=== PATIENT | female | born 1940 | race Hispanic/Latino ===

== ENCOUNTER 2020-11-12 13:25 | Emergency (ER) | payer MEDICARE ==
[~2020-11-12] VITALS: Ht 152.4 cm; Wt 49.9 kg
[2020-11-12 17:16] VITALS: BP 124/74
== END 2020-11-12 17:19 | disposition home or self-care (01) ==
LOC: EDH 13:25
DX: S52.502A Unspecified fracture of the lower end of left radius, initial encounter for closed fracture (principal); S52.602A Unspecified fracture of lower end of left ulna, initial encounter for closed fracture; I10 Essential (primary) hypertension; F41.9 Anxiety disorder, unspecified; W18.39XA Other fall on same level, initial encounter; Y93.89 Activity, other specified; Y92.89 Other specified places as the place of occurrence of the external cause; Y99.8 Other external cause status
CPT/HCPCS: 29125; 73110

== ENCOUNTER 2022-10-16 09:50 | Emergency (ER) | payer MEDICARE, OTHER ==
[~2022-10-16] VITALS: Ht 152.4 cm; Wt 54.4 kg
[2022-10-16 10:24] LABS: BASOPHILS % (AUTO) 0.5 % (0.0-5.0); HEMATOCRIT 50.4 % (36-48); LYMPHOCYTES % (AUTO) 21.3 % (21.0-51.0); MEAN CORPUSCULAR HGB CONC 33.1 g/dL (32.0-36.0); MEAN CORPUSCULAR VOLUME 90.6 fL (79-99); NEUTROPHILS % (AUTO) 70.8 % (40.0-77.0); PLATELET COUNT (AUTO) 157 K/uL (130-400); RED BLOOD CELL COUNT(AUTO) 5.56 MIL/uL (4.00-5.50); RED CELL DISTRIBUTION WIDTH 13.5 % (11.0-15.5); WHITE BLOOD COUNT (AUTO) 7.9 K/uL (4.8-10.8)
[2022-10-16 10:36] LABS: CREATININE 0.7 mg/dL (0.5-1.5); POTASSIUM 3.9 mmol/L (3.5-5.1)
[2022-10-16 10:50] LABS: ALBUMIN 3.5 g/dL (3.5-5.0); THYROID STIMULATING HORMONE 2.1 uIU/mL (0.36-3.74); TOTAL PROTEIN, SERUM 6.4 g/dL (6.0-8.3)
[2022-10-16 14:18] VITALS: BP 126/60; PULSE 80; RESP 18; O2SAT 97
[2022-10-16 14:27] LABS: APPEARANCE,URINE CLEAR (CLEAR); BILIRUBIN,URINE NEGATIVE (NEGATIVE); COLOR,URINE LIGHT-YELLOW (YELLOW); GLUCOSE, URINE (UA) NEGATIVE (NEGATIVE); KETONES,URINE NEGATIVE (NEGATIVE); LEUKOCYTE ESTERASE ,URINE NEGATIVE Leu/uL (NEGATIVE); NITRATE,URINE NEGATIVE (NEGATIVE); OCCULT BLOOD,URINE NEGATIVE (NEGATIVE); PH,URINE 7.5 (5.0-8.0); PROTEIN,URINE NEGATIVE (NEGATIVE)
[2022-10-16 14:39] LABS: BACTERIA,URINE RARE /HPF (None Seen); RBC,URINE 0-1 /HPF (0-1); WBC,URINE 0-1 /HPF (0-1)
== END 2022-10-16 16:44 | disposition home or self-care (01) ==
LOC: EDH 09:50
DX: R53.1 Weakness (principal); F10.90 Alcohol use, unspecified, uncomplicated; F17.200 Nicotine dependence, unspecified, uncomplicated; E78.00 Pure hypercholesterolemia, unspecified; Z86.73 Personal history of transient ischemic attack (TIA), and cerebral infarction without residual deficits; Y90.0 Blood alcohol level of less than 20 mg/100 ml
CPT/HCPCS: 36415; 71045; 80053; 81001; 84443; 84484; 85025; 93005

== ENCOUNTER 2022-10-23 13:12 | Inpatient (IN) | payer OTHER ==
[~2022-10-23] VITALS: Ht 152.4 cm; Wt 46.3 kg
[2022-10-23 15:18] LABS: MEAN CORPUSCULAR HGB CONC 33.9 g/dL (32.0-36.0); MEAN CORPUSCULAR VOLUME 88.5 fL (79-99); RED BLOOD CELL COUNT(AUTO) 5.2 MIL/uL (4.00-5.50); RED CELL DISTRIBUTION WIDTH 13.1 % (11.0-15.5)
[2022-10-23 15:49] LABS: ALBUMIN 3.4 g/dL (3.5-5.0); BILIRUBIN,TOTAL 0.9 mg/dL (0.2-1.0); CREATININE 0.8 mg/dL (0.5-1.5); POTASSIUM 3.4 mmol/L (3.5-5.1); TOTAL PROTEIN, SERUM 6.1 g/dL (6.0-8.3)
[2022-10-23] MEDS: ONDANSETRON 4MG INJ IVP ONE ×2 (18:13→18:16)
[2022-10-23] MEDS: MORPHINE 2 MG SYG IVP ONE ×2 (18:13→18:16)
[2022-10-23 18:48] LABS: APPEARANCE,URINE CLEAR (CLEAR); BILIRUBIN,URINE NEGATIVE (NEGATIVE); COLOR,URINE LIGHT-YELLOW (YELLOW); GLUCOSE, URINE (UA) NEGATIVE (NEGATIVE); KETONES,URINE NEGATIVE (NEGATIVE); LEUKOCYTE ESTERASE ,URINE NEGATIVE Leu/uL (NEGATIVE); NITRATE,URINE NEGATIVE (NEGATIVE); OCCULT BLOOD,URINE NEGATIVE (NEGATIVE); PH,URINE 6.5 (5.0-8.0); PROTEIN,URINE NEGATIVE (NEGATIVE); UROBILINOGEN,URINE 0.2 mg/dL (0.2-1.0)
[2022-10-23 18:50] LABS: ADD UA MICROSCOPIC YES
[2022-10-23 18:55] LABS: BACTERIA,URINE RARE /HPF (None Seen); RBC,URINE 0-1 /HPF (0-1); SQUAMOUS EPITHELIAL CELL,UR RARE /HPF (0-2); UNCLASSIFIED CRYSTAL 1 /HPF (None Seen); YEAST,URINE BUDDING RARE /HPF (None Seen)
[2022-10-23] MEDS ORDERED: ONDANSETRON 4MG INJ IV PRN (20:00)
[2022-10-23] MEDS ORDERED: LACTULOSE 20 GM/30 ML UDCUP PO PRN (20:00)
[2022-10-23] MEDS ORDERED: ACETAMINOPHEN 325 MG TAB PO PRN ×2 (20:00)
[2022-10-23] MEDS ORDERED: KCL 20 MEQ ERTAB PO ONE (21:00)
[2022-10-23] MEDS: FAMOTIDINE 20MG TAB PO SCH (21:43)
[2022-10-24 11:51] LABS: HEMATOCRIT 44.6 % (36-48); MEAN CORPUSCULAR HEMOGLOBIN 30.2 pg (27.0-33.0); MEAN CORPUSCULAR HGB CONC 33.4 g/dL (32.0-36.0); MEAN CORPUSCULAR VOLUME 90.3 fL (79-99); RED BLOOD CELL COUNT(AUTO) 4.94 MIL/uL (4.00-5.50); RED CELL DISTRIBUTION WIDTH 12.9 % (11.0-15.5); WHITE BLOOD COUNT (AUTO) 7.1 K/uL (4.8-10.8)
[2022-10-24 12:00] LABS: CREATININE 0.8 mg/dL (0.5-1.5); POTASSIUM 3.8 mmol/L (3.5-5.1)
[2022-10-24 19:15] VITALS: O2SAT 97
[2022-10-24] MEDS: LIDOCAINE 5% TOPICAL PATCH TP SCH (19:18)
[2022-10-24] MEDS: FAMOTIDINE 20MG TAB PO SCH (19:18)
[2022-10-24] MEDS: TRAMADOL HCL 50 MG TABLET PO PRN (19:19)
[2022-10-24 20:00] VITALS: BP 155/73; PULSE 72; RESP 18
[2022-10-25] VITALS (8 sets, daily range): BP systolic 105–174; BP diastolic 50–92; PULSE 60–79; RESP 18; O2SAT 94–96
[2022-10-25 05:23] LABS: HEMATOCRIT 44.4 % (36-48); MEAN CORPUSCULAR HEMOGLOBIN 29.7 pg (27.0-33.0); MEAN CORPUSCULAR HGB CONC 32.9 g/dL (32.0-36.0); MEAN CORPUSCULAR VOLUME 90.4 fL (79-99); RED BLOOD CELL COUNT(AUTO) 4.91 MIL/uL (4.00-5.50)
[2022-10-25] MEDS: TRAMADOL HCL 50 MG TABLET PO PRN (05:24)
[2022-10-25 06:07] LABS: CREATININE 0.8 mg/dL (0.5-1.5); CRP QUANTITATIVE 39.4 mg/L (0.00-9.0); POTASSIUM 3.5 mmol/L (3.5-5.1)
[2022-10-25] MEDS: LACTOSE-REDUCED VAN/STB/CHOC 237 ML BOTTLE PO SCH (17:00)
[2022-10-25] MEDS: FAMOTIDINE 20MG TAB PO SCH (22:00)
[2022-10-25] MEDS: LIDOCAINE 5% TOPICAL PATCH TP SCH (22:00)
[2022-10-26] VITALS (10 sets, daily range): BP systolic 114–180; BP diastolic 43–86; PULSE 59–84; RESP 18–20; O2SAT 96–97
[2022-10-26] MEDS ORDERED: AMLO2.5T4 PO (00:16)
[2022-10-26] MEDS ORDERED: TIZA-211 PO (00:16)
[2022-10-26] MEDS ORDERED: FAMO40TA7 PO (00:16)
[2022-10-26] MEDS ORDERED: ROSU20TA73 PO (00:16)
[2022-10-26] MEDS ORDERED: SERT-440 PO (00:16)
[2022-10-26] MEDS ORDERED: HYDRALAZINE 20MG/ML VIAL IV PRN (01:00)
[2022-10-26] MEDS: TRAMADOL HCL 50 MG TABLET PO PRN (02:18)
[2022-10-26] MEDS ORDERED: POTASSIUM CHLORIDE 20MEQ/100ML 100 ML IV PRN (02:30)
[2022-10-26] MEDS ORDERED: MAGNESIUM 2GM PREMIX 50ML 50 ML IV PRN (02:30)
[2022-10-26] MEDS ORDERED: POTASSIUM CHLORIDE 10% ELIXIR 20 MEQ/15 ML UDCUP PO PRN (02:30)
[2022-10-26 05:23] LABS: BASOPHILS # (AUTO) 0.04 K/uL (0.00-0.20); BASOPHILS % (AUTO) 0.5 % (0.0-5.0); EOSINOPHILS # (AUTO) 0.12 K/uL (0.00-0.70); EOSINOPHILS % (AUTO) 1.6 % (0.0-8.0); HEMATOCRIT 43.2 % (36-48); IMMATURE GRANULOCYTE ABSOLUTE 0.04 K/uL (0-1); LYMPHOCYTES # (AUTO) 1.4 K/uL (1.0-4.8); LYMPHOCYTES % (AUTO) 17.5 % (21.0-51.0); MEAN CORPUSCULAR VOLUME 88.2 fL (79-99); MONOCYTES # (AUTO) 0.7 K/uL (0.1-1.0); MONOCYTES % (AUTO) 9.1 % (3.0-13.0); NEUTROPHILS # (AUTO) 5.5 K/uL (1.8-7.7); NEUTROPHILS % (AUTO) 70.8 % (40.0-77.0); PLATELET COUNT (AUTO) 165 K/uL (130-400); RED CELL DISTRIBUTION WIDTH 12.8 % (11.0-15.5); WHITE BLOOD COUNT (AUTO) 7.7 K/uL (4.8-10.8)
[2022-10-26 05:46] LABS: BILIRUBIN,TOTAL 1.1 mg/dL (0.2-1.0); CREATININE 0.8 mg/dL (0.5-1.5); MAGNESIUM 1.5 mg/dL (1.80-2.40); POTASSIUM 3.5 mmol/L (3.5-5.1); TOTAL PROTEIN, SERUM 5.9 g/dL (6.0-8.3)
[2022-10-26] MEDS: KCL 20 MEQ ERTAB PO PRN ×2 (06:18→18:15)
[2022-10-26] MEDS: LACTOSE-REDUCED VAN/STB/CHOC 237 ML BOTTLE PO SCH ×3 (08:00→17:00)
[2022-10-26] MEDS: AMLODIPINE 2.5 MG TAB PO SCH (08:52)
[2022-10-26] MEDS: TIZANIDINE HCL 2 MG TABLET PO SCH ×2 (08:52→20:40)
[2022-10-26] MEDS: SERTRALINE HCL 50 MG TABLET PO SCH (08:52)
[2022-10-26] MEDS: LIDOCAINE 5% TOPICAL PATCH TP SCH (18:15)
[2022-10-26] MEDS: FAMOTIDINE 20MG TAB PO SCH (20:40)
[2022-10-27 00:10] VITALS: BP 139/68
[2022-10-27 04:21] VITALS: BP 170/71; PULSE 80; RESP 23
[2022-10-27 05:17] VITALS: BP 152/72; PULSE 70
[2022-10-27 05:25] LABS: HEMATOCRIT 43.5 % (36-48); MEAN CORPUSCULAR HEMOGLOBIN 30.1 pg (27.0-33.0); MEAN CORPUSCULAR VOLUME 88.6 fL (79-99); RED BLOOD CELL COUNT(AUTO) 4.91 MIL/uL (4.00-5.50); RED CELL DISTRIBUTION WIDTH 12.6 % (11.0-15.5); WHITE BLOOD COUNT (AUTO) 8.5 K/uL (4.8-10.8)
[2022-10-27 05:50] LABS: CREATININE 0.7 mg/dL (0.5-1.5); POTASSIUM 3.7 mmol/L (3.5-5.1)
[2022-10-27] MEDS ORDERED: MAGNESIUM 2GM PREMIX 50ML 50 ML IV PRN (06:30)
[2022-10-27] MEDS: KCL 20 MEQ ERTAB PO PRN (06:31)
[2022-10-27] MEDS ORDERED: MAGNESIUM 2GM PREMIX 50ML 50 ML IV ONE (06:34)
[2022-10-27 08:00] VITALS: BP 146/70; PULSE 75; RESP 18; O2SAT 97
[2022-10-27] MEDS: LACTOSE-REDUCED VAN/STB/CHOC 237 ML BOTTLE PO SCH ×3 (08:00→16:59)
[2022-10-27] MEDS: TIZANIDINE HCL 2 MG TABLET PO SCH ×2 (09:13→21:00)
[2022-10-27] MEDS: SERTRALINE HCL 50 MG TABLET PO SCH (09:13)
[2022-10-27] MEDS: AMLODIPINE 2.5 MG TAB PO SCH (09:13)
[2022-10-27] MEDS: TRAMADOL HCL 50 MG TABLET PO PRN (13:54)
[2022-10-27] MEDS ORDERED: CHLORDIAZEPOXIDE HCL 25 MG CAP PO PRN ×2 (14:30)
[2022-10-27] MEDS ORDERED: PHARMACY COMMUNICATION MISC PRN (14:30)
[2022-10-27] MEDS ORDERED: LORAZEPAM 2 MG/ML 1 ML VIAL IVP PRN ×2 (14:30)
[2022-10-27 16:00] VITALS: BP 117/56; PULSE 72; RESP 18
[2022-10-27] MEDS: FAMOTIDINE 20MG TAB PO SCH (21:00)
[2022-10-28 08:00] VITALS: BP 125/60; PULSE 63; RESP 16; O2SAT 89
[2022-10-28] MEDS: LACTOSE-REDUCED VAN/STB/CHOC 237 ML BOTTLE PO SCH ×3 (08:00→17:41)
[2022-10-28] MEDS: AMLODIPINE 2.5 MG TAB PO SCH (09:20)
[2022-10-28] MEDS: SERTRALINE HCL 50 MG TABLET PO SCH (09:20)
[2022-10-28] MEDS: NICOTINE 14 MG/ 24 HR PATCH TD SCH (10:30)
[2022-10-28] MEDS: TIZANIDINE HCL 2 MG TABLET PO SCH ×2 (10:30→20:18)
[2022-10-28] MEDS: TRAMADOL HCL 50 MG TABLET PO PRN ×2 (11:51→18:20)
[2022-10-28 12:00] VITALS: BP 131/55; PULSE 68; RESP 16
[2022-10-28 15:56] VITALS: BP 95/48; PULSE 71; RESP 18
[2022-10-28] MEDS: LIDOCAINE 5% TOPICAL PATCH TP SCH ×2 (18:21→19:00)
[2022-10-28 20:00] VITALS: BP 132/69; PULSE 74; RESP 20
[2022-10-28 20:15] VITALS: O2SAT 97
[2022-10-28] MEDS: FAMOTIDINE 20MG TAB PO SCH (20:18)
[2022-10-29] VITALS: BP 117/64; PULSE 65; RESP 18
[2022-10-29 04:00] VITALS: BP 113/63; PULSE 68; RESP 18
[2022-10-29 05:53] LABS: BASOPHILS # (AUTO) 0.06 K/uL (0.00-0.20); BASOPHILS % (AUTO) 0.8 % (0.0-5.0); EOSINOPHILS # (AUTO) 0.18 K/uL (0.00-0.70); EOSINOPHILS % (AUTO) 2.3 % (0.0-8.0); HEMATOCRIT 41.6 % (36-48); IMMATURE GRANULOCYTE ABSOLUTE 0.09 K/uL (0-1); LYMPHOCYTES # (AUTO) 2.1 K/uL (1.0-4.8); LYMPHOCYTES % (AUTO) 26.3 % (21.0-51.0); MEAN CORPUSCULAR HEMOGLOBIN 30.1 pg (27.0-33.0); MEAN CORPUSCULAR HGB CONC 33.4 g/dL (32.0-36.0); MONOCYTES # (AUTO) 0.7 K/uL (0.1-1.0); MONOCYTES % (AUTO) 8.5 % (3.0-13.0); NEUTROPHILS # (AUTO) 4.8 K/uL (1.8-7.7); NEUTROPHILS % (AUTO) 60.9 % (40.0-77.0); PLATELET COUNT (AUTO) 170 K/uL (130-400); RED BLOOD CELL COUNT(AUTO) 4.62 MIL/uL (4.00-5.50); RED CELL DISTRIBUTION WIDTH 13.1 % (11.0-15.5); WHITE BLOOD COUNT (AUTO) 7.8 K/uL (4.8-10.8)
[2022-10-29 06:23] LABS: ALBUMIN 2.8 g/dL (3.5-5.0); BILIRUBIN,TOTAL 0.6 mg/dL (0.2-1.0); POTASSIUM 3.9 mmol/L (3.5-5.1); TOTAL PROTEIN, SERUM 5.7 g/dL (6.0-8.3)
[2022-10-29 08:00] VITALS: BP 135/61; PULSE 70; RESP 18; O2SAT 93
[2022-10-29] MEDS: LACTOSE-REDUCED VAN/STB/CHOC 237 ML BOTTLE PO SCH ×2 (08:00→12:00)
[2022-10-29] MEDS: TIZANIDINE HCL 2 MG TABLET PO SCH ×2 (09:08→19:41)
[2022-10-29] MEDS: NICOTINE 14 MG/ 24 HR PATCH TD SCH (09:08)
[2022-10-29] MEDS: AMLODIPINE 2.5 MG TAB PO SCH (09:09)
[2022-10-29] MEDS: SERTRALINE HCL 50 MG TABLET PO SCH (09:09)
[2022-10-29 12:00] VITALS: BP 140/64; PULSE 66; RESP 18
[2022-10-29] MEDS: TRAMADOL HCL 50 MG TABLET PO PRN (14:17)
[2022-10-29 16:00] VITALS: BP 145/75; PULSE 69; RESP 17
[2022-10-29] MEDS: FAMOTIDINE 20MG TAB PO SCH (19:41)
[2022-10-29] MEDS: LIDOCAINE 5% TOPICAL PATCH TP SCH (19:41)
[2022-10-29 19:46] VITALS: O2SAT 95
== END 2022-10-29 20:00 | DRG 552 ==
LOC: EDH 13:12 → EDHIP 19:32 → 3AH 10-24 18:05
PROVIDERS: ADMIT Hospitalist; ATTEND Hospitalist
DX: S22.088A Other fracture of T11-T12 vertebra, initial encounter for closed fracture (principal); S32.018A Other fracture of first lumbar vertebra, initial encounter for closed fracture; S32.028A Other fracture of second lumbar vertebra, initial encounter for closed fracture; S32.038A Other fracture of third lumbar vertebra, initial encounter for closed fracture; W01.0XXA Fall on same level from slipping, tripping and stumbling without subsequent striking against object, initial encounter; E87.6 Hypokalemia; F17.210 Nicotine dependence, cigarettes, uncomplicated; E78.5 Hyperlipidemia, unspecified; I10 Essential (primary) hypertension; Z90.710 Acquired absence of both cervix and uterus; Y93.89 Activity, other specified; Y92.89 Other specified places as the place of occurrence of the external cause; Y99.8 Other external cause status; Z91.148 Patient's other noncompliance with medication regimen for other reason
CPT/HCPCS: 36415; 72128; 72131; 72192; 73521; 80048; 80053; 81001; 82306; 82607; 83735; 85025; 85027; 85651; 86140; 97039; G0378; J0360; J2270; J2405; J3475

== ENCOUNTER 2023-02-16 13:54 | Emergency (ER) | payer OTHER ==
[~2023-02-16] VITALS: Ht 152.4 cm; Wt 47.6 kg
[~2023-02-16 13:54] MED LIST: AMLO2.5T4 PO; FAMO40TA7 PO; ROSU20TA73 PO; SERT-440 PO; TIZA-211 PO
[2023-02-16 14:35] LABS: ADD UA MICROSCOPIC NO; APPEARANCE,URINE CLEAR (CLEAR); BILIRUBIN,URINE NEGATIVE (NEGATIVE); COLOR,URINE YELLOW (YELLOW); GLUCOSE, URINE (UA) NEGATIVE (NEGATIVE); KETONES,URINE NEGATIVE (NEGATIVE); LEUKOCYTE ESTERASE ,URINE NEGATIVE Leu/uL (NEGATIVE); NITRATE,URINE NEGATIVE (NEGATIVE); OCCULT BLOOD,URINE NEGATIVE (NEGATIVE); PH,URINE 6.5 (5.0-8.0); PROTEIN,URINE NEGATIVE (NEGATIVE); UROBILINOGEN,URINE 0.2 mg/dL (0.2-1.0)
[2023-02-16 15:30] LABS: BASOPHILS # (AUTO) 0.04 K/uL (0.00-0.20); BASOPHILS % (AUTO) 0.5 % (0.0-5.0); EOSINOPHILS # (AUTO) 0.08 K/uL (0.00-0.70); HEMATOCRIT 40.5 % (36-48); IMMATURE GRANULOCYTE ABSOLUTE 0.02 K/uL (0-1); LYMPHOCYTES # (AUTO) 2.1 K/uL (1.0-4.8); LYMPHOCYTES % (AUTO) 27.1 % (21.0-51.0); MEAN CORPUSCULAR HEMOGLOBIN 28.7 pg (27.0-33.0); MEAN CORPUSCULAR HGB CONC 32.8 g/dL (32.0-36.0); MEAN CORPUSCULAR VOLUME 87.3 fL (79-99); MONOCYTES # (AUTO) 0.5 K/uL (0.1-1.0); NEUTROPHILS % (AUTO) 65.1 % (40.0-77.0); PLATELET COUNT (AUTO) 192 K/uL (130-400); RED BLOOD CELL COUNT(AUTO) 4.64 MIL/uL (4.00-5.50); RED CELL DISTRIBUTION WIDTH 13.2 % (11.0-15.5); WHITE BLOOD COUNT (AUTO) 7.7 K/uL (4.8-10.8)
[2023-02-16 15:42] LABS: CREATININE 0.7 mg/dL (0.5-1.5); POTASSIUM 4.3 mmol/L (3.5-5.1)
[2023-02-16 15:46] LABS: ALBUMIN 3.8 g/dL (3.5-5.0); BILIRUBIN,TOTAL 0.5 mg/dL (0.2-1.0); TOTAL PROTEIN, SERUM 6.6 g/dL (6.0-8.3)
[2023-02-16 18:07] VITALS: BP 150/77; PULSE 77; RESP 16; O2SAT 95
== END 2023-02-16 19:27 | disposition home or self-care (01) ==
LOC: EDH 13:54
DX: R53.1 Weakness (principal)
CPT/HCPCS: 36415; 71045; 80053; 81003; 85025